=== PATIENT | male | born 1980 | race Caucasian/White ===

== ENCOUNTER 2016-10-29 17:13 | Emergency (ER) | payer MEDICAID, OTHER ==
[~2016-10-29] VITALS: Ht 157.5 cm; Wt 68.0 kg
[2016-10-29] MEDS ORDERED: SOD CHLORIDE 0.9% 1,000 ML IV STA (17:30)
[2016-10-29] MEDS ORDERED: ONDANSETRON 4 MG INJ IV STA ×2 (17:30→20:26)
[2016-10-29] MEDS ORDERED: morphine 4 MG/ML VIAL IV STA (17:30)
[2016-10-29 17:35] VITALS: Ht 157.5 cm; Wt 68.0 kg
[2016-10-29 19:38] LABS: ALBUMIN 3.6 g/dl (3.3-4.9); POTASSIUM 4.5 mmol/L (3.5-5.1)
[2016-10-29 19:40] LABS: CREATININE 0.71 mg/dl (0.61-1.24); INR 0.99; PARTIAL THROMBOPLASTIN TIME 25.3 Sec (25.0-35.0); PROTIME 13.1 Sec (12.2-14.2)
[2016-10-29 19:41] LABS: ALBUMIN/GLOBULIN RATIO 1.33; BILIRUBIN,INDIRECT 0.2 mg/dl (0-1.1); BILIRUBIN,TOTAL 0.2 mg/dl (0.2-1.3); CALCIUM 8.5 mg/dl (8.4-10.2); TOTAL PROTEIN 6.3 g/dl (6.1-8.1)
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
[2016-10-29 19:47] LABS: BASOPHILS % 0.1 % (0.0-2.0); EOSINOPHILS % 0.7 % (0.0-7.0); HEMATOCRIT 32.6 % (42.0-52.0); HEMOGLOBIN 11.2 g/dl (14.0-18.0); LYMPHOCYTES # 0.8 10^3/ul (0.8-2.9); LYMPHOCYTES % 12.5 % (15.0-51.0); MEAN CORPUSCULAR HEMOGLOBIN 29.8 pg (29.0-33.0); MEAN CORPUSCULAR HGB CONC 34.5 g/dl (32.0-37.0); MEAN CORPUSCULAR VOLUME 86.5 fl (82.0-101.0); MEAN PLATELET VOLUME 9.2 fl (7.4-10.4); MONOCYTE # 0.3 10^3/ul (0.3-0.9); MONOCYTES % 4.2 % (0.0-11.0); NEUTROPHIL # 5.6 10^3/ul (1.6-7.5); NEUTROPHILS % 82.5 % (39.0-77.0); PLATELET COUNT 204 10^3/UL (140-440); RED BLOOD COUNT 3.76 10^6/ul (4.70-6.10); RED CELL DISTRIBUTION WIDTH 11.9 % (11.5-14.5); UNCORRECTED WBC 6.8 10^3/ul (4.8-10.8); WHITE BLOOD COUNT 6.8 10^3/ul (4.8-10.8)
[2016-10-29 19:51] LABS: CONDITION 1
[2016-10-29] MEDS ORDERED: HYDROmorphONE 1 MG/ML SYG IV STA (20:26)
[2016-10-29] MEDS ORDERED: SOD CHLORIDE 0.9% 100 ML ONE (21:24)
[2016-10-29] MEDS ORDERED: IOHEXOL 300MG/ML 150 ML BTL ONE (21:24)
--- NOTE | 2016-10-29 21:46 | RADRPT ---
PROCEDURE: CT abdomen and pelvis with contrast and with 3-D reconstructions CLINICAL INDICATION: Abdominal Pain TECHNIQUE: CT scan of the abdomen and pelvis with intravenous contrast was performed on a multisli ce CT scanner. 3-D sagittal and coronal reformatted images were obtained from the axial source image s. DLP 562.72 mGycm CTDIvol 9.24 mGy COMPARISON: None. FINDINGS: The visualized lung bases are unremarkable. The liver is homogenous in attenuation. There are no focal liver lesions. There is no intrahepatic or extrahepatic biliary ductal dilatation. The gallbladder is within normal limits. The spleen, pancreas, and adrenal glands are within normal limits. The kidneys are symmetric and without focal lesions. There are no renal calculi. There is no obstruc tive uropathy. There are no dilated or thickened loops of bowel. The appendix is within normal limits. There are sc attered colonic diverticula without evidence of diverticulitis. The aorta is within normal limits. There are no enlarged mesenteric, periaortic, or retroperitoneal lymph nodes. The bladder is distended. There is no free air. There is no free fluid. There are no enlarged intrapelvic or inguinal lymph nodes. Osseous and soft tissue structures are unremarkable. IMPRESSION: Normal appendix. Scattered colonic diverticula without evidence of diverticulitis. Distended bladder. RPTAT: EE Physician Ghulam Date Time Electronically viewed and signed by Physician Ghulam on 10/29/2016 21:46 /
[2016-10-29] MEDS ORDERED: KETOROLAC 30 MG INJ IV STA (22:03)
[2016-10-29] MEDS ORDERED: HYDR-906 PO (22:04)
[2016-10-29] MEDS ORDERED: IBUP-1542 PO (22:04)
[2016-10-29] MEDS ORDERED: DOCU-144 PO (22:04)
[2016-10-29 22:18] VITALS: BP 129/79; PULSE 79; RESP 16
== END 2016-10-29 22:45 | disposition home or self-care (01) ==
LOC: E/R 17:13
DX: S30.811A Abrasion of abdominal wall, initial encounter (principal); R10.32 Left lower quadrant pain; W01.0XXA Fall on same level from slipping, tripping and stumbling without subsequent striking against object, initial encounter; Y92.9 Unspecified place or not applicable; Z87.891 Personal history of nicotine dependence
CPT/HCPCS: 74177; 80053; 85025; 85610; 85730; 96374; 96375; 96376; J1170; J1885; J2270; J2405; J7030; Q9967; Z7502; Z7610